=== PATIENT | female | born 1990 | race African-American/Black ===

== ENCOUNTER 2023-07-16 00:23 | Observation (INO) | payer OTHER ==
[2023-07-16 01:02] VITALS: BMI 26.6
[2023-07-16] MEDS ORDERED: hydrALAZINE 20 MG/ML VIAL SLOW IVP PRN ×2 (01:14→03:28)
[2023-07-16] MEDS: Acetaminophen 500 MG TAB PO SCH (02:24)
[2023-07-16] MEDS: Cyclobenzaprine 10 MG TAB PO SCH (02:47)
[2023-07-16 03:27] LABS: Hematocrit 29.9 % (34.9-44.5); Hemoglobin 9.8 g/dL (12.0-15.5); Mean Corpuscular HGB CONC 32.8 g/dL (32.0-36.0); Mean Corpuscular Hemoglobin 30.2 pg (27.0-33.0); Mean Corpuscular Volume 92.3 fl (81.6-98.3); Platelet Count 150 10x3/uL (150-450); RBC Distribution Width 14.4 % (11.5-14.5); Red Blood Cell (RBC) Count 3.24 10x6/uL (3.90-5.03); White Blood Cell (WBC) Count 8.9 10x3/uL (3.5-10.5)
[2023-07-16] MEDS ORDERED: Promethazine HCl 25 MG/ML VIAL IM PRN (03:28)
[2023-07-16] MEDS ORDERED: Ondansetron PF 4 MG/2 ML Vial IVP PRN (03:28)
[2023-07-16 03:30] LABS: MDiff Complete? YES
[2023-07-16] MEDS ORDERED: Magnesium Sulfate 20 gm/500 ml 20 GM/500 ML BAG IVPB SCH (03:30)
[2023-07-16] MEDS ORDERED: Oxytocin 30 units/NS 500 ML 500 ML IV SCH (03:30)
[2023-07-16 03:33] LABS: Mean Platelet Volume 13.2 fl (7.4-10.4)
[2023-07-16 03:34] LABS: ALT (SGPT) 14 U/L (8-55); AST (SGOT) 18 U/L (5-34); Albumin 3.5 g/dL (3.5-5.0); Alkaline Phosphatase 82 U/L (40-110); Anion Gap 13 mmol/L (10-20); BUN (Urea Nitrogen) 9 mg/dL (7.0-18.7); Bilirubin, Total 0.4 mg/dL (0.2-1.2); Calc. Creatinine Clearance 124 mL/min (70-130); Calcium 8.8 mg/dL (7.8-10.44); Carbon Dioxide 22 mmol/L (22-29); Chloride 104 mmol/L (98-107); Estimated GFR 108; Globulin 2.5 g/dL (2.4-3.5); Glucose 80 mg/dL (70-105); Potassium 3.6 mmol/L (3.5-5.1); Sodium 135 mmol/L (136-145)
[2023-07-16] MEDS: Lactated Ringer's 1,000 ML IV SCH (03:39)
[2023-07-16 03:49] LABS: Band 10 % (5-11); Lymphocytes 23 % (21-51); Monocytes 10 % (0-10); Neutrophil 57 % (42-75)
[2023-07-16 03:50] LABS: Giant Platelets SLIGHT HPF (0-5); Platelet Adequacy Comment Appears Adequate; RBC Morph Comment Within Normal Limits
[2023-07-16] MEDS: Terbutaline Sulfate 1 MG/ML VIAL SC SCH (03:58)
[2023-07-16] MEDS: Betamet Acet/Betamet Na Ph 30 MG/5 ML VIAL IM SCH (04:00)
[2023-07-16 04:28] LABS: Bilirubin Neg (Negative); Blood, Urine Negative (Negative); Clarity Slightly Cloudy (Clear); Glucose, Urine (Dipstick) Normal (Negative); Ketone, Urine Negative (Negative); Leukocyte Negative (Negative); Nitrite Negative (Negative); Protein, Urine (Dipstick) Negative (Neg-Trace); Urobilinogen Normal mg/dL (Less than 2)
[2023-07-16 04:37] LABS: Amphetamine Not Detected (NotDetected); Barbiturates Screen Not Detected (NotDetected); Benzodiazepine Screen Not Detected (NotDetected); Cocaine Metabolite Screen Not Detected (NotDetected); Methadone Not Detected (NotDetected); Methamphetamine Not Detected (NotDetected); Opiate Screen Not Detected (NotDetected); Oxycodone Screen Not Detected (NotDetected); Phencyclidine (PCP) Not Detected (NotDetected); THC/Cannabinoid Screen Not Detected (NotDetected); Tricyclic Screen Not Detected (NotDetected)
[2023-07-16 04:51] LABS: Bacteria/HPF None Seen HPF (None Seen); CAUTI Indications for Culture Pregnancy; RBC/HPF None Seen HPF (0-3); Squamous Epithelial 0-3 HPF (0-3); WBC/HPF None Seen HPF (0-3)
[2023-07-16 04:54] LABS: Urine Culture Reflex Yes Yes
[2023-07-17 19:39] LABS: Group B Streptococcus by PCR DETECTED (NotDetected)
[2023-07-17 22:00] LABS: Penicillin Allergy Suscept Rfl Susceptibility Rflex
== END 2023-07-17 08:10 | disposition home health service (06) ==
LOC: CSHERS 00:23 → CSHLD/OP 00:41 → CSHLD 04:17
PROVIDERS: ADMIT Obstetrics & Gynecology; ATTEND Obstetrics & Gynecology
DX: O9A.212 Injury, poisoning and certain other consequences of external causes complicating pregnancy, second trimester (principal); S39.91XA Unspecified injury of abdomen, initial encounter; O47.02 False labor before 37 completed weeks of gestation, second trimester; Z3A.26 26 weeks gestation of pregnancy; Z88.0 Allergy status to penicillin; Z88.1 Allergy status to other antibiotic agents; Y04.8XXA Assault by other bodily force, initial encounter
CPT/HCPCS: 36415; 76815; 76817; 80053; 80306; 81001; 85025; 86900; 86901; 87086; 87653; 96360; 96372; 99283; 99284; G0378; J0702; J3105

== ENCOUNTER 2024-04-05 17:49 | Emergency (ER) | payer OTHER, MEDICAID ==
[2024-04-05] MEDS ORDERED: Ondansetron ODT 4 MG TAB ONE (19:01)
[2024-04-05] MEDS ORDERED: Ketorolac Tromethamine 30 MG (1 mL) VIAL ONE (19:01)
[2024-04-05 19:34] LABS: Bilirubin Neg (Negative); Blood, Urine Negative (Negative); Clarity Slightly Cloudy (Clear); Glucose, Urine (Dipstick) Normal (Negative); Ketone, Urine 5 mg/dL (Negative); Leukocyte 100 (Negative); Nitrite Negative (Negative); Protein, Urine (Dipstick) Negative (Neg-Trace); Urobilinogen Normal mg/dL (Less than 2)
[2024-04-05 19:40] LABS: Pregnancy Test - Urine (BHCG) Negative (Negative); Pregu Control Background? CLEAR/WHITE (CLR/WHITE); Pregu Control Bar Appear? YES (CONTROL BAR)
[2024-04-05 19:52] LABS: CAUTI Indications for Culture Pelvic or flank pain; RBC/HPF 0-3 HPF (0-3)
[2024-04-05 19:56] LABS: Bacteria/HPF 3+ HPF (None Seen); Mucous/LPF 2+ LPF (<2+)
[2024-04-05 19:58] LABS: Urine Culture Reflex No No
[2024-04-05] MEDS ORDERED: Dicyclomine 20 MG TAB PO SCH (20:30)
[2024-04-05] MEDS ORDERED: Dicyclomine 20 MG TAB ONE (20:33)
== END 2024-04-05 20:44 | disposition home or self-care (01) ==
LOC: CSHERS 17:49
DX: B34.9 Viral infection, unspecified (principal); N39.0 Urinary tract infection, site not specified
CPT/HCPCS: 81001; 81025; 87086; 87428; 87480; 87510; 87660; 96372; 99284; J1885; Q0162

== ENCOUNTER 2024-05-26 16:47 | Emergency (ER) | payer OTHER ==
[2024-05-26] MEDS ORDERED: diphenhydrAMINE 25 MG CAP ONE (18:08)
== END 2024-05-26 18:16 | disposition home or self-care (01) ==
LOC: CSHERS 16:47
DX: K13.0 Diseases of lips (principal); B00.0 Eczema herpeticum
CPT/HCPCS: 99283

== ENCOUNTER 2024-12-29 20:32 | Emergency (ER) | payer OTHER ==
[2024-12-29 20:57] LABS: Glucose, Urine (Dipstick) Normal (Negative); Leukocyte 500 (Negative); Protein, Urine (Dipstick) 30 mg/dl (Neg-Trace); Specific Gravity, Urine 1.015 (1.005-1.030)
[2024-12-29 20:59] LABS: Pregnancy Test - Urine (BHCG) Negative (Negative); Pregu Control Background? CLEAR/WHITE (CLR/WHITE); Pregu Control Bar Appear? YES (CONTROL BAR)
[2024-12-29 21:03] LABS: Bacteria/HPF 2+ HPF (None Seen); CAUTI Indications for Culture Pelvic or flank pain; RBC/HPF 21-50 HPF (0-3)
[2024-12-29 21:05] LABS: Urine Culture Reflex No No
[2024-12-29] MEDS ORDERED: Ibuprofen 200 MG TAB ONE (21:21)
== END 2024-12-29 21:24 | disposition home or self-care (01) ==
LOC: CSHERS 20:32
DX: N94.6 Dysmenorrhea, unspecified (principal)
CPT/HCPCS: 81001; 81025; 99284

== ENCOUNTER 2025-04-14 20:54 | Emergency (ER) | payer OTHER ==
[~2025-04-14 20:54] MED LIST: Iopamidol 300 61% 100 ML VIAL FS ONE
[2025-04-14 21:19] LABS: BHCG - Serum Negative (NEGATIVE); Pregs Control Background? CLEAR/WHITE (CLR/WHITE); Pregs Control Bar Appear? YES (CONTROL BAR)
[2025-04-14 21:24] LABS: ALT (SGPT) 20 U/L (Less than 34); AST (SGOT) 20 U/L (11-34); Albumin 4.0 g/dL (3.1-4.5); Alkaline Phosphatase 84 U/L (40-110); Anion Gap 11 mmol/L (10-20); BUN (Urea Nitrogen) 9 mg/dL (7.0-18.7); Bilirubin, Total 1.6 mg/dL (0.3-1.2); Calc. Creatinine Clearance 0 mL/min (70-130); Calcium 8.6 mg/dL (7.8-10.44); Carbon Dioxide 23 mmol/L (22-29); Chloride 111 mmol/L (98-107); Globulin 2.8 g/dL (2.4-3.5); Glucose 87 mg/dL (70-105); Lipase 30 U/L (8-78); Potassium 3.7 mmol/L (3.5-5.1); Sodium 141 mmol/L (136-145)
[2025-04-14 21:32] LABS: Hematocrit 33.2 % (34.9-44.5); Hemoglobin 11.0 g/dL (12.0-15.5); Mean Corpuscular Hemoglobin 30.9 pg (27.0-33.0); Mean Corpuscular Volume 93.3 fL (81.6-98.3); Platelet Count 144 10x3/uL (150-450); Red Blood Cell (RBC) Count 3.56 10x6/uL (3.90-5.03); White Blood Cell (WBC) Count 4.63 10x3/uL (3.5-10.5)
[2025-04-14 21:46] LABS: Anisocytosis SLIGHT = 6-15 cells (100X) (0-5/hpf); MDiff Complete? YES; Macrocytosis SLIGHT = 6-15 cells (100X) (0-5/hpf); Platelet Adequacy Comment Appears Adequate; Polychromasia SLIGHT = 2-3 cells (100X) (0-2/hpf)
== END 2025-04-14 22:55 | disposition home or self-care (01) ==
LOC: CSHERS 20:54
DX: R11.10 Vomiting, unspecified (principal); R07.9 Chest pain, unspecified; J45.909 Unspecified asthma, uncomplicated; Z79.51 Long term (current) use of inhaled steroids
CPT/HCPCS: 71045; 71260; 74177; 80053; 83690; 84703; 85025; 93005; 93010; 96360; 96361; Q9967